=== PATIENT | male | born 2000 | race Caucasian/White ===

== ENCOUNTER 2025-06-14 18:30 | Emergency (ER) | payer BC, SELFPAY ==
--- OUTSIDE RECORDS SUMMARY | 2015-12-24 10:02 | XMS_ITS | Continuity of Care Document ---
Author Organization [facility] Address [address] [place] [address] Phone Care Team Providers Care Corporate Accounting Manager Name Role Phone Fadia Gonzalez PA-C Unavailable Unavailab le Advance Directives Directive Yes / No Effective Date File Name No Information Encounters Encounter Description Practice Location Reason(s) For Visit Diagnoses Date Provider Providers Copied on Encounter [facility], [address], [place], [address], [place] tel:[phone] [facility] No Information 6 Lisa Loaiza. [address], [place], [place], [id number] . tel: [phone] Family History Family Member Type Diagnosis Age At Onset No Information Payers Payer name Insurance type Covered alliance party ID Authoriza tion(s) No Information Social History Type Description Quantity Date Captured Comments Sex Male Smoking Status No Information Chief Complaint And Reason For Visit No Information Reason For Referral Reason For Referral No Information History Of Present Illness Encounter Date Complaint History Of Prese nt Illness No Information Functional Status Date Functional Assessmen t No Information Instructions Date Instruction Additional Infor mation No Information Assessments Type Assessment Date No Information Patient Care Teams Name Effective Dates (start - stop) Status Members No Information
--- OUTSIDE RECORDS SUMMARY | 2025-06-14 18:35 | XMS_ITS | Clinical Summary ---
Author Organization [facility] Address [address] [place] [address] Care Team Providers Care Ordering Box Operator Name Role Phone Joe Humphries MD Primary Care Provider Allergies No known active allergies Medications No known medications Active Problems Problem Noted Date Diagnosed Date Contusion of rib on left side 11/22/2020 Rib pain on left side 11/22/2020 Immunizations Immunization Administration Dates Next Due Influenza, Trivalent, IM (MDV) 07/15/2014,2011 Influenza, Trivalent, Preservative Free, Intramu scular 08/24/2015 Varicella 02/22/2013 Social History Tobacco Use Types Packs/Day Years Used Date Smoking Tobacco: Never Smokeless Tobacco: Never Alcohol Use Standard Drinks/Week Comments No 0 (1 standard drink = 0.6 oz pur e alcohol) Sex and Gender Information Value Date Recorded Sex Assigned at Not on file Legal Sex Male 3:01 AM [employer] Gender Identity Not on file Sexual Orientation Not on file Obstetrics History Last Filed Vital Signs Vital Sign Reading Time Taken Comments Blood Pressure 133/87 11/21/2020 10:16 AM CDT Pulse 52 11/21/2020 10:16 AM CDT Temperature 36.4 C (97.6 F) 11/21/2020 10:16 AM CDT Respiratory Rate - - Oxygen Saturation 55% 12/22/2015 7:22 AM CDT Inhaled Oxygen Concentration - - Weight 74.4 kg (164 lb) 11/21/2020 10:16 AM CDT Height 175.3 cm (5' 9) 11/21/2020 10:16 AM CDT Body Mass Index 24.22 11/21/2020 10:16 AM CDT Plan of Treatment Not on file Insurance [employer] [place] [address] [place] [address] CHOICE PLUS [facility] [place] [address] Care Teams Ordering Box Operator Relationship Specialty Start Date End Date Joe Humphries MD [address] [place] [address] PCP - General 06/08/13
--- NOTE | 2025-06-14 19:49 | PC.NURSE ---
accompanied PLASTICS PATTERNMAKER for penile exam. Pt tolerated well.
--- NOTE | 2025-06-14 20:51 | ED.GENADULT ---
HPI - General Adult General Chief complaint: Unspecified Stated complaint: Dizziness Time Seen by Provider: 06/14/25 19:39 Source: patient and RN notes reviewed Mode of arrival: ambulatory Limitations: no limitations History of Present Illness HPI narrative: 25-year-old male patient presents today with 2 complaints: Firstly, he complains of a 10 day history of mild dizziness and lightheadedness that he describes as feeling, ?off, confusion, a lingering fog. He denies any additional associated symptoms to include chest pain, shortness of breath, palpitations or racing heart, headache, vision changes, numbness or tingling. Dizziness does not worsen with head movement or lying down. States these symptoms have not worsened since onset, but does endorse that he is very anxious related to some serious life changes at work and home in the last week and believes these may have brought on his symptoms. Denies any cardiac or neurological history. Secondly, patient is complaining of irritation to the skin of his penis. Approximately 2 months ago the tip of his penis touched the surface of a public toilet at a restaurant. At that time, he immediately went home and showered and used sanitizing white which he believed was for skin, but turned out to be for surfaces and irritated his skin leading to a rash. During this time he has tried some Lotrimin which had helped with the irritation, and some antibiotic ointment which led to some itching. He does not experience irritation or pain when he touches the area, but does have pain when soap or water touches the skin. He has not been sexually active since the initial incident at the restaurant. At this time, he denies any urinary symptoms such as dysuria, hematuria, frequency, penile discharge. He is wondering if the penile complaint could be causing his neurological issues. Related Data Home Medications ?Medication ?Instructions ?Recorded ?Confirmed ?Last Taken ?Type No Home Medications 04/14/22 06/14/25 Unknown History Allergies Allergy/AdvReac Type Severity Reaction Status Date / Time No Known Allergies Allergy Verified 06/14/25 18:37 [facility] Past Medical History Medical History Wellness examination Social History Social History Social History: single Smoking status: Never smoker Second hand tobacco smoke exposure: No Alcohol intake: never Substance use: never Substance use type: does not use Do You Feel Safe in your Home?: Yes Lack of Transportation: No Lack of Food: Never True Current Housing: I Have Housing Concerned About Future Housing: No Difficulty Paying Gas/Electric Bills: No Difficulty Paying for Meds: No Currently Unemployed: No Education: Don't Know Difficulty w/ Childcare or Family Care: No Living arrangements: with family Occupation/Education: student Additional occupation/education comments: Pt also works Gender identity (if verbalized by the patient): Male Sexual Orientation (if Verbalized by the Patient): Straight or Heterosexual Comments At time of signature, I have reviewed and agree with nursing past medical, surgical, social and family history unless otherwise noted. Please see nursing chart for further information. There is no relevant family history pertinent to the presenting complaint Exam Narrative: GENERAL: Well-appearing, well-nourished, and in no acute distress. HEAD: Normocephalic, atraumatic. EYES: EOMI. PERRL. No nystagmus. No redness or drainage. Conjunctivae normal. ENT: Mucous membranes pink and moist. Nares clear. No rhinorrhea. TMs normal bilaterally. Throat normal. Uvula midline. NECK: Normal AROM. Supple. No lymphadenopathy. CHEST: No respiratory distress. Clear to auscultation. HEART: Regular rate and rhythm. No murmur appreciated. Normal peripheral pulses. : Exam chaperoned by Richard Wallace RN. Skin of entire penis appears normal without erythema, edema, rash or signs of irritation. Patient locates his concern to the penile head. No urethral drainage. Scrotum appears normal as well. EXTREMITIES: Normal range of motion. No edema. SKIN: Warm, dry, no rash. Capillary refill normal. Normal skin turgor. NEURO: No focal deficits. Alert and oriented x3. Gait steady. PSYCH: Normal affect. No signs of depression or anxiety. Course Course Level of Care: Express Care Visit Vital Signs Vital signs: No VS charted by nurse or tech. Will attempt to obtain and chart at a later time. Medical Decision Making MDM Narrative Medical decision making narrative: 25 year old male patient complains of a 10 day history of mild dizziness and lightheadedness that he describes as feeling, ?off, confusion, a lingering fog, possibly brought on by significant changes at home and work. Also complaining of irritation to the skin of his penis. Approximately 2 months ago the tip of his penis touched the surface of a public toilet at a restaurant. At that time, he immediately went home and showered and used sanitizing wipe which he believed was for skin, but turned out to be for surfaces and irritated his skin leading to a rash. During this time he has tried some Lotrimin which had helped with the irritation, and some antibiotic ointment which led to some itching. He does not experience irritation or pain when he touches the area, but does have pain when soap or water touches the skin. He has not been sexually active since the initial contact with the toilet seat. Patient physical and neurological exam completely normal, but due to patient's concerning neurological complaints, recommend he transfer to the ED for further evaluation. Bedside glucose 85. Patient does not wish to go to the ED at this time and will sign out AMA. He will continue Lotrimin at home for the penile skin as he states this has been helpful. Recommend PCP follow up for this skin recheck in 1 week if symptoms persist. At this time, VS are not available for patient. Will attempt to obtain them and chart an addendum when they are obtained. Patient has declined transfer against medical advise. In my opinion, the patient has capacity to leave AMA. The patient is clinically sober, free from distracting injury, appears to have insight and judgement and reason, and in my opinion has capacity to make decisions. I explained to the patient that his symptoms may represent a neurological concern and the patient verbalized understanding of my concerns. I explained the risks of returning home without further workup or treatment, which included possible complications up to and including . Patient continues to refuse transfer to the Emergency Department and will leave AMA. I have asked them to proceed there [facility] if they change their mind. I have answered all their questions. Lab Data Labs: Lab Results 06/14/25 Range/Units 19:59 POC Capillary Glucose 82 (65-105) mg/dl Critical Care Time Critical Care Time Critical Care Time: No Discharge Plan Discharge Clinical Impression: Penile irritation, Lightheadedness Patient Disposition: Left Against Medical Advice Condition: Stable Additional Instructions: Please continue using the Lotrimin on your penis. Follow-up with your PCP in 1 week if symptoms persist. Your declining transfer to the ER today for further evaluation of your dizziness/lightheadedness/confusion symptoms. Please understand that the ER is open 24 hours and that you may go there at any time for further evaluation. Patient Language: Setswana Prescriptions: No Action No Home Medications Follow-up/Referrals: Joe Humphries MD [Primary Care Provider, Family Practice] Time of Disposition: 19:57
--- NOTE | 2025-06-15 08:14 | PC.NURSE ---
Late entry: Vitals 06/13/25. WT. 74.84 HT. 5'10 HR-64, T-97.7, DV31-943%, R-18, BP 144/96.
== END 2025-06-14 20:12 | disposition left against medical advice (07) ==
PROVIDERS: Emergency Provider Nurse Practitioner; PCP Family Medicine
DX: N48.89 Other specified disorders of penis (principal); R42 Dizziness and giddiness
CPT/HCPCS: 82948; 99212; G0463